=== PATIENT | male | born 1990 | race Caucasian/White ===

== ENCOUNTER 2019-03-04 10:15 | Emergency (ER) | payer OTHER ==
[~2019-03-04] VITALS: Ht 185.4 cm; Wt 90.9 kg
[2019-03-04 10:27] VITALS: Ht 185.4 cm; Wt 90.9 kg
--- NOTE | 2019-03-04 10:45 | NUR ---
MENTAL HEALTH NURSE ATTEMPTED TO COMPLETE SUICIDE ASSESSMENT AT THIS TIME. UNABLE TO COMPLETE AT THIS TIME DUE TO PT UNDER THE INFLUENCE OF ALCOHOL. CHARGE NURSE AND ATTENDING NOTIFIED AT THIS TIME. WILL ATTEMPT TO RESCREEN PT AT LATER TIME. ATTENDING AND CHARGE NURSE WILL NOTIFY MENTAL HEALTH NURSE TO ATTEMPT TO RESCREEN PT AT THAT TIME. PT IS IN A SAFE ROOM FOR SAFETY. PT PLACED IN PAPER SCRUBS FOR SAFETY. ALL BELONGING LOCKED UP WITH CHARGE NURSE FOR SAFETY.
[2019-03-04 10:50] LABS: APPEARANCE CLEAR (CLEAR); BILIRUBIN NEGATIVE (NEGATIVE); COLOR STRAW (YELLOW); GLUCOSE NEGATIVE (NEGATIVE); KETONE NEGATIVE (NEGATIVE); NITRITE NEGATIVE (NEGATIVE); PROTEIN NEGATIVE (NEGATIVE); SPECIFIC GRAVITY 1.005 (1.005-1.020); UROBILINOGEN NORMAL (NORMAL)
[2019-03-04 10:55] LABS: UDS - AMPHET NEGATIVE QUAL (NEGATIVE); UDS - BARB NEGATIVE QUAL (NEGATIVE); UDS - BENZO NEGATIVE QUAL (NEGATIVE); UDS - COCAINE NEGATIVE QUAL (NEGATIVE); UDS - OPIATE NEGATIVE QUAL (NEGATIVE); UDS - PCP NEGATIVE QUAL (NEGATIVE); UDS - THC NEGATIVE QUAL (NEGATIVE)
[2019-03-04] MEDS ORDERED: SEROQUEL100 MG PO (11:18)
[2019-03-04] MEDS ORDERED: TRILEPTAL300 MG PO (11:19)
[2019-03-04] MEDS ORDERED: NEURONTIN 400400 MG PO (11:19)
[2019-03-04] MEDS ORDERED: NALTREXONE HCL50 MG PO (11:20)
[2019-03-04 11:25] LABS: BASOPHILS 0.1 % (0-2); EOSINOPHILS 0.9 % (0-7); HEMATOCRIT 44.6 % (42.0-54.0); HEMOGLOBIN 15.3 g/dL (13.5-17.5); IMMATURE GRANULOCYTES 0.2 % (0-5); LYMPHOCYTES 30.5 % (15-50); MCH 31.4 pg (26.0-34.0); MCHC 34.3 g/dL (31.0-37.0); MCV 91.4 fL (80.0-100.0); MEAN PLATELET VOLUME 9.1 fL (7.4-10.4); MONOCYTES 9.8 % (2-11); NEUTROPHILS 58.5 % (40-80); PLATELET COUNT 243 10x3/uL (130-400); RBC 4.88 10x6/uL (4.20-6.10); RDW 13.1 % (11.5-14.5); WBC 9.5 10x3/uL (4.8-10.8)
[2019-03-04 11:39] LABS: ALBUMIN 4.1 g/dL (3.4-5.0); ALKALINE PHOSPHATASE 74 U/L (46-116); ALT (SGPT) 62 U/L (10-68); BILIRUBIN - TOTAL 0.38 mg/dL (0.2-1.3); CALC OSMOLALITY 278 mosm/kg (275-300); CHLORIDE - SERUM 103 mmol/L (98-107); CREATININE - SERUM 0.8 mg/dL (0.6-1.3); GLUCOSE 99 mg/dL (74-106); MAGNESIUM - SERUM 2.4 mg/dL (1.8-2.4); POTASSIUM - SERUM 3.3 mmol/L (3.5-5.1); PROTEIN - SERUM 7.9 g/dL (6.4-8.2); SODIUM 141 mmol/L (136-145); UREA NITROGEN 7 mg/dL (7-18); eGFR NON AFRICAN AMERICAN > 90 mL/min (90-120)
--- NOTE | 2019-03-04 17:11 | NUR ---
MENTAL HEALTH NURSE ATTEMPTED TO COMPLETE SUICIDE SCREENING. PT REFUSES TO ANSWER QUESIONS AT THIS TIME. PT APPEARS VERY SLEEP. ALCOHOL LEVEL IS LOWER AT THIS TIME. PT UNABLE TO COMPLETE ASSESSMENT. CHARGE NURSE AND ATTENDING NOTIFIED. WILL ATTEMPT ASSESSMENT AT LATER TIME. CHARGE NURSE AND ATTENDING AWARE TO CONTACT MENTAL HEALTH NURSE FOR ASSESSMENT AT LATER TIME.
--- NOTE | 2019-03-04 19:01 | NUR ---
MENTAL HEALTH NURSE ATTEMPTED TO COMPLETED SUICIDE ASSESSMENT AT THIS TIME. PT REFUSED TO COMPLETE ASSESSMENT AT THIS TIME. CHARGE NURSE AND ATTENDING NOTIFIED AT THIS TIME. WILL ATTEMPT SUICIDE ASSESSMENT AT LATER TIME. PT REMAINS IN SAFE ROOM IN PAPER SCRUBS WITH ALL BELONGINGS LOCKED UP FOR SAFETY.
[2019-03-04 20:57] VITALS: BP 100/63
== END 2019-03-04 20:59 ==
LOC: D.ER 10:15
PROVIDERS: Family Medicine
DX: R45.851 Suicidal ideations (principal); F20.9 Schizophrenia, unspecified